=== PATIENT | female | born 1995 | race Caucasian/White ===

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

== ENCOUNTER 2017-01-09 09:06 | Outpatient (CLI) | payer OTHER ==
[~2017-01-09] VITALS: Ht 165.1 cm; Wt 81.0 kg
[2017-01-09] MEDS ORDERED: LEVO112T2 PO (09:26)
[2017-01-09 09:30] VITALS: BP 145/67
[2017-01-09 10:32] VITALS: BP 124/57
[2017-01-09 10:56] LABS: MEAN CORPUSCULAR HGB CONC 33.6 g/dl (32.0-36.5); MEAN CORPUSCULAR VOLUME 77.5 fl (80.0-96.0); RED CELL DISTRIBUTION WIDTH 13.7 % (11.5-14.5); WHITE BLOOD COUNT 13.9 K/mm3 (4.0-10.0)
[2017-01-09 11:44] LABS: ALBUMIN 2.5 GM/DL (3.2-5.2); ALBUMIN/GLOBULIN RATIO 0.64 (1.00-1.93); ALKALINE PHOSPHATASE 141 U/L (45-117); ALT/SGPT 9 U/L (12-78); AMYLASE 80 U/L (25-115); ANION GAP 11 MEQ/L (8-16); AST/SGOT 12 U/L (15-37); BILIRUBIN,TOTAL 0.8 MG/DL (0.2-1.0); BLOOD UREA NITROGEN 6 MG/DL (7-18); CALCIUM LEVEL 8.7 MG/DL (8.5-10.1); CARBON DIOXIDE LEVEL 24 MEQ/L (21-32); CHLORIDE LEVEL 105 MEQ/L (98-107); CREATININE FOR GFR 0.49 MG/DL (0.55-1.02); GLUCOSE, FASTING 95 MG/DL (70-105); POTASSIUM SERUM 4.4 MEQ/L (3.5-5.1); SODIUM LEVEL 140 MEQ/L (136-145); TOTAL PROTEIN 6.4 GM/DL (6.4-8.2)
[2017-01-09 12:03] VITALS: BP 120/71
== END 2017-01-09 12:50 | disposition home or self-care (01) ==
LOC: M LDO 09:06
PROVIDERS: ATTEND Obstetrics & Gynecology
DX: O26.893 Other specified pregnancy related conditions, third trimester (principal); R10.9 Unspecified abdominal pain; Z3A.35 35 weeks gestation of pregnancy

== ENCOUNTER → 2017-01-19 | Outpatient (CLI) | payer OTHER ==
[~2017-01-19] VITALS: Ht 165.1 cm; Wt 83.0 kg
[~2017-01-19] MED LIST changes: +FERR325T3 PO; +LEVO112T2 PO; +PRENTAB9 PO
[2017-01-19 17:47] VITALS: BP 138/75
--- NOTE | 2017-01-19 19:24 | IPNPDOC ---
Text Note Date of Service The patient was seen on 01/19/17. NOTE Subjective: Pt is a 21 year old with a cool IUP at approximately 37wk who presents to triage for ctxs. She states the ctx started this morning and over the course of the day have gotten stronger. She had one episode of emesis earlier. No diarrhea. ROS: Admits: Gross movement, adequate hydration Denies: Vaginal discharge/loss of fluid/bleeding, fever/chills Objective: Normotensive, tachycardia NST: FHT 140 with moderate variability, +accels, no decels. Reactive NST. Stovall: uterine irritability, irregular ctx Physical Exam: General: WDWN gravid female in NAD Mental : AAOx3 Abdominal: Gravid abdomen without guarding or rebound tenderness. Extremity: no edema in LE bilaterally (SCE chaperoned by RN): / Assessment: Pt is a 21 year old with a cool IUP at approximately 37wk in latent labor with no evidence of active labor. Normotensive, but slightly tachycardic- in conjunction with uterine irritability, likely related to slight dehydration. SCE /-. Reactive NST. Plan: -pt given pitcher of water to drink prior to discharge home -Labor precautions discussed with patient -keep scheduled office appointment - kick counts daily -encouraged continued hydration at home -return to triage if vaginal bleeding/lof, increasing frequency and pain of CTXs , fever, reduced movement, or other problems -medrec reviewed Dr. Marcus Newton MD [place] Srinath FERREIRA, I+O VSSrinath, I+O Vital Signs Date Time Temp Pulse Resp B/P Pulse Ox O2 Delivery O2 Flow Rate FiO2 01/19/17 17:47 98.5 133 138/75 MARCUS NEWTON MD Jan 19, 2017 19:24
== END ==
LOC: M LDO 17:34
PROVIDERS: ATTEND Obstetrics & Gynecology
DX: O62.0 Primary inadequate contractions (principal); Z3A.37 37 weeks gestation of pregnancy; O26.893 Other specified pregnancy related conditions, third trimester; R00.0 Tachycardia, unspecified

== ENCOUNTER 2017-01-25 20:36 | Outpatient (CLI) | payer OTHER ==
[~2017-01-25] VITALS: Ht 165.1 cm; Wt 80.0 kg
[2017-01-25 20:47] VITALS: BP 131/81
--- NOTE | 2017-01-26 00:23 | HPE ---
DATE OF ADMISSION: 01/25/2017 21-year-old, 2, para 1, LMP 04/20/2016, EDC 02/04/2017, at 38 weeks of gestation, history of clear spontaneous rupture of membranes for 24 hours. Risk factor is that she is hypothyroid. She had a past history of gestational hypertension. She has asthma and restless leg syndrome. LABS: O positive, HIV negative, hepatitis negative, RPR negative, rubella immune. Varicella immune. Urine negative. Gonorrhea and chlamydia negative. GBS is negative. PAST HISTORY: In 2014 at 38 weeks spontaneous vaginal delivery male 6 pounds 15 ounces because of gestational hypertension. PHYSICAL EXAMINATION: She is in no acute distress. She came in not wearing a pad. Symphysis fundus height is 38, vertex category one strip. No contractions. Sterile examination: Nitrazine negative, Fern negative. Cervix 70% effaced, posterior, 2-3 cm, -2 station. No vaginal bleeding or discharge noted. Urine is 1005, pH 7, negative. Blood pressure is 131/81, respirations are 18, pulse 115, temperature 97.1. Other blood pressures 135/82, 131/81, 140/78, 142/83. The rest examination is unremarkable. She is normocephalic, atraumatic. Neck: Full range of motion. Pupils equal and reactive to light. Distal pulses are symmetric. No evidence of DVT, PE or superficial phlebitis. No right upper quadrant pain. No visual disturbances. Has no reflex abnormality. No pedal edema. Chest is clear bilaterally to bases. No wheezes or rhonchi. No CVA tenderness. Four quadrant bowel sounds. 38 Symphysis fundus height. Uterus is non-irritable. Category one strip. She has no rashes, lesions or pruritus. No arthralgia, myalgia. No complaints of cough, wheeze, shortness breath or dyspnea on exertion. No chest pain, not bleeding. Neuro complete. No incontinency, urgency or frequency. No nausea, vomiting, diarrhea, or constipation. No diabetic issues. Does not smoke, drink or abuse alcohol. . There is no domestic violence. Past rest of the history is unremarkable. In summary, we have a 38 plus week of gestation with probably gestational hypertension. Good candidate for induction of labor. Very favorable cervix. An appointment on Friday to discuss induction of labor.
== END 2017-01-25 22:15 | disposition home or self-care (01) ==
LOC: M LDO 20:36
PROVIDERS: ATTEND Obstetrics & Gynecology
DX: O26.893 Other specified pregnancy related conditions, third trimester (principal); O99.283 Endocrine, nutritional and metabolic diseases complicating pregnancy, third trimester; E03.9 Hypothyroidism, unspecified; O99.513 Diseases of the respiratory system complicating pregnancy, third trimester; J45.909 Unspecified asthma, uncomplicated; O99.353 Diseases of the nervous system complicating pregnancy, third trimester; G25.81 Restless legs syndrome; Z3A.38 38 weeks gestation of pregnancy

== ENCOUNTER 2017-01-26 04:18 | Inpatient (IN) | payer OTHER ==
[2017-01-26] VITALS (12 sets, daily range): BP systolic 113–146; BP diastolic 59–81
[~2017-01-26] VITALS: Ht 165.1 cm; Wt 80.0 kg
[2017-01-26] MEDS ORDERED: LR 1,000 ML IV SCH (05:01)
[2017-01-26] MEDS ORDERED: LACTATED RINGER'S 1000 ML IV ONE (05:15)
[2017-01-26 05:23] LABS: MEAN CORPUSCULAR HEMOGLOBIN 25.1 pg (27.0-33.0); MEAN CORPUSCULAR HGB CONC 33.1 g/dl (32.0-36.5); MEAN CORPUSCULAR VOLUME 75.7 fl (80.0-96.0); RED CELL DISTRIBUTION WIDTH 14.4 % (11.5-14.5); WHITE BLOOD COUNT 13.7 K/mm3 (4.0-10.0)
[2017-01-26] MEDS ORDERED: FENTANYL 2MCG/ML ROPIVACAINE 0.2% NACL 250 ML CADD As Ordered ONE (05:36)
[2017-01-26] MEDS ORDERED: REFRIGERATOR IV KEYS XX PRN (05:55)
[2017-01-26] MEDS ORDERED: EPIDURAL/PCA KEYS XX PRN (05:55)
[2017-01-26] MEDS ORDERED: EPIDURAL COMMENT XX SCH (05:55)
[2017-01-26] MEDS ORDERED: LACTATED RINGER'S 1000 ML IV PRN (05:55)
[2017-01-26] MEDS ORDERED: ONDANSETRON 4MG/2ML VIAL (J2405) IV PRN (05:55)
[2017-01-26] MEDS ORDERED: FENTANYL/ROPIVACAINE/NACL CADD 250 ML EPIDURAL SCH (05:55)
[2017-01-26] MEDS ORDERED: NALOXONE INJ 0.4 MG/1 ML VIAL (J2310) IV PRN (05:55)
[2017-01-26] MEDS ORDERED: ePHEDrine SULFATE 25 MG/5 ML(5MG/ML) SYRINGE IV PRN (05:55)
[2017-01-26] MEDS ORDERED: diphenhydrAMINE INJ 50MG/ML VIAL (J1200) IV PRN (05:55)
--- NOTE | 2017-01-26 07:08 | HPE ---
DATE OF ADMISSION: 01/26/2017 21-year-old, 2, para 1, last menstrual period (LMP) 04/15/2016, expected date of confinement (EDC) 02/06/2017, at 38 and 1 weeks of gestation in active labor at 6 cm, 100% effaced with bulging membranes. The risk factors is she is hypothyroid, gestational hypertension, asthma and restless leg syndrome. LABORATORIES: O positive. HIV negative. Hepatitis negative. RPR negative. Rubella immune. Varicella immune. Urine negative. Gonorrhea and chlamydia negative. GBS negative. PAST HISTORY: In 2014, at 38 weeks, spontaneous vaginal delivery of a male, 6 pounds 15 ounces, gestational hypertension. On examination, she is distressed. Symphysis fundus height is 38 cm, vertex occiput anterior (OA), 100% effaced, -1 station, 6 cm with bulging membranes. No vaginal loss or bleeding. Urine is 1.005, pH 7, negative. Blood pressure 131/88, respirations 18, pulse 104 and temperature 97.6. Our plan of management is to hydrate the patient, activate an epidural, anticipate vaginal delivery. In summary, we have a term gestation at 38 and 1 weeks with gestational hypertension in active labor.
[2017-01-26] MEDS ORDERED: OXYTOCIN 30 UNITS IN 0.9% NaCl 500ML IV BAG (J2590) As Ordered ONE (07:26)
[2017-01-26] MEDS ORDERED: OXYTOCIN DRIP 30 UNITS in APPROPRIATE DILUENT 1 EA IV SCH (07:30)
[2017-01-26 08:34] LABS: CORD GAS HCO3 V 22.6 MEQ/L; CORD GAS O2 SAT V 85.3 %; CORD GAS PH V 7.427 UNITS; CORD GAS PO2 V 36.2 mmHg; CORD GAS SBC V 23.3 MEQ/L; CORD GAS TCO2 V 23.6 MEQ/L
[2017-01-26 08:43] LABS: CORD GAS ABE A -2.5; CORD GAS HCO3 A 23.5 MEQ/L; CORD GAS O2 SAT A 53.7 %; CORD GAS PCO2 A 44.6 mmHg; CORD GAS PH A 7.339 UNITS; CORD GAS PO2 A 20.3 mmHg; CORD GAS SBC A 21.3 MEQ/L; CORD GAS TCO2 A 24.8 MEQ/L
[2017-01-26] MEDS ORDERED: DOCUSATE SODIUM 100 MG CAP PO PRN (08:45)
[2017-01-26] MEDS ORDERED: ANUSOL HC CREAM 30GM TOP PRN (08:45)
[2017-01-26] MEDS ORDERED: MEASLES,MUMPS,RUBELLA VACCINE INJ (MMR-II) (90707) SC SCH (08:45)
[2017-01-26] MEDS ORDERED: MOM 30ML SUSPENSION UDC PO PRN (08:45)
[2017-01-26] MEDS ORDERED: RHOGAM 300 MCG (1500 IU) INJ (J2790) IM SCH (08:45)
[2017-01-26] MEDS ORDERED: ACETAMINOPHEN 500 MG TAB PO PRN (08:45)
[2017-01-26] MEDS ORDERED: DIBUCAINE 1% OINTMENT 30GM TOP PRN (08:45)
[2017-01-26] MEDS ORDERED: METHYLERGONOVINE MALEATE 0.2 MG TAB PO PRN (08:45)
--- NOTE | 2017-01-26 08:51 | DN ---
DATE: 01/26/2017 This lady is a 2, para 1 with gestational hypertension, admitted at 38 and 2 in active labor, epidural in place. Artificial rupture of membranes, clear liquor, augmentation with two milliunits of Pitocin, delivered a live female infant weighing 8 pounds 10 ounces, 3918 grams, scores of 9 and 9 at one and five minutes respectively. Placenta delivered spontaneously thereafter. Three-vessel cord, membranes and tissues intact. Arterial and venous pH was performed. Evaluation of the cervix was normal. The lateral johnson, anterior and posterior were normal. She had a small abrasion at the perineum, which was bleeding because of the varicosity, oversewn with a [id number] #2-0 Vicryl on a [id number]. The uterus contracted well down on Pitocin. Patient and baby tolerating procedure well.
[2017-01-26] MEDS: IBUPROFEN 800 MG TAB PO PRN ×2 (14:45→20:34)
[2017-01-26] MEDS: PRENATAL VITAMIN TAB PO SCH (14:51)
[2017-01-27 05:34] VITALS: BP 132/64
[2017-01-27] MEDS ORDERED: LEVOTHYROXINE 0.125 MG TAB (125 MCG) PO SCH (06:00)
[2017-01-27 06:42] LABS: MEAN CORPUSCULAR HEMOGLOBIN 24.6 pg (27.0-33.0); MEAN CORPUSCULAR HGB CONC 32.5 g/dl (32.0-36.5); MEAN CORPUSCULAR VOLUME 75.7 fl (80.0-96.0); RED CELL DISTRIBUTION WIDTH 14.5 % (11.5-14.5); WHITE BLOOD COUNT 13.7 K/mm3 (4.0-10.0)
[2017-01-27] MEDS: PRENATAL VITAMIN TAB PO SCH (07:58)
[2017-01-27] MEDS: IBUPROFEN 800 MG TAB PO PRN (07:59)
--- NOTE | 2017-01-27 08:56 | IPNPDOC ---
Text Note Date of Service The patient was seen on 01/27/17. NOTE PPD 1 Catshakira is a 21yo doing well on PPD 1 s/p uncomplicated . She is . Lochia normal, spontaneously voiding and ambulating without difficulty. Tolerating regular diet. Denies f/c/n/v/SOB/CP/ROME/abdominal pain. Vitals wnl, afebrile Exam: General: WDWN, NAD, resting comfortably Cardiac: S1S2 present, no murmur Lungs: CTAB without wheeze/crackles Abdomen: soft, NTTP, fundus firm u-2cm Extremities: no tenderness of calves bilaterally Assessment: Marily is a 21yo doing well on PPD 1 s/p uncomplicated . Meeting all milestones. No e/o infection, hemodynamically stable. Plan: -discharge to home with routine follow-up for 6wk PP visit -home meds already given from clinic stock -undecided on contraception Dr. Marcus Valle MD [facility] [place] VS,Srinath, I+O VS, Srinath, I+O Laboratory Tests 01/27/17 06:24 Red Blood Count 3.55 L, Mean Corpuscular Volume 75.7 L, Mean Corpuscular Hemoglobin 24.6 L, Mean Corpuscular Hemoglobin Concent 32.5, Red Cell Distribution Width 14.5 Vital Signs Date Time Temp Pulse Resp B/P Pulse Ox O2 Delivery O2 Flow Rate FiO2 01/27/17 05:34 98.2 91 18 132/64 01/26/17 17:50 96 Room Air I&O- Last 24 Hours up to 6 AM 01/27/17 05:59 Output Total 975 ml Balance -975 ml MARCUS VALLE MD Jan 27, 2017 08:56
[2017-01-27] MEDS ORDERED: TYLE500T78 PO (09:50)
[2017-01-27] MEDS ORDERED: IBUP-1114 PO (09:54)
[2017-01-27] MEDS ORDERED: NUPE10OI TOP (09:54)
[2017-01-27] MEDS ORDERED: COLA100C PO (09:54)
== END 2017-01-27 15:10 | disposition home or self-care (01) | DRG 775 ==
LOC: M LDO 04:18 → M LDI 05:02 → M OBS 10:38
PROVIDERS: ADMIT Obstetrics & Gynecology; ATTEND Obstetrics & Gynecology
PROC: 10E0XZZ Delivery of Products of Conception, External Approach (ICD-10-PCS; principal; 2017-01-26)
PROC: 10907ZC Drainage of Amniotic Fluid, Therapeutic from Products of Conception, Via Natural or Artificial Opening (ICD-10-PCS; 2017-01-26)
DX: O13.4 Gestational [pregnancy-induced] hypertension without significant proteinuria, complicating childbirth (principal); O99.354 Diseases of the nervous system complicating childbirth; O99.284 Endocrine, nutritional and metabolic diseases complicating childbirth; E03.9 Hypothyroidism, unspecified; Z3A.38 38 weeks gestation of pregnancy; J45.909 Unspecified asthma, uncomplicated; G25.81 Restless legs syndrome; O87.8 Other venous complications in the puerperium; O99.52 Diseases of the respiratory system complicating childbirth; Z37.0 Single live birth

== ENCOUNTER → 2019-06-21 | Outpatient (REF) | payer MEDICAID ==
[~2019-06-21] MED LIST changes: -ACET50TA PO; +COLA100C5 PO; +IBUP-1114 PO; +MAPA500T2 PO; +NUPE10OI TOP; +TYLE500T78 PO
== END ==
LOC: M SFHCLERA 16:52
PROVIDERS: ATTEND Nurse Practitioner Family
DX: J02.9 Acute pharyngitis, unspecified (principal)

== ENCOUNTER → 2019-09-06 | Outpatient (CLI) | payer OTHER ==
[2019-09-06 15:31] LABS: BASO # 0.1 10^3/uL (0.0-0.2); BASO % 0.4 % (0.0-1.0); EOS # 0.4 10^3/uL (0.0-0.5); EOS % 3.6 % (0.0-3.0); HEMATOCRIT 40.2 % (36.0-47.0); HEMOGLOBIN 13.4 g/dl (12.0-15.5); LYMPH # 2.6 10^3/uL (1.5-5.0); MEAN CORPUSCULAR HEMOGLOBIN 29.1 pg (27.0-33.0); MEAN CORPUSCULAR HGB CONC 33.3 g/dl (32.0-36.5); MEAN CORPUSCULAR VOLUME 87.4 fl (80.0-96.0); MONO # 0.8 10^3/uL (0.0-0.8); MONO % 6.4 % (0.0-5.0); NEUTROPHILS % 66.8 % (36.0-66.0); PLATELET COUNT, AUTOMATED 216 10^3/uL (150-450)
[2019-09-06 16:02] LABS: FREE T4 0.83 NG/DL (0.76-1.46); GLUCOSE CHALLENGE TEST 1 HOUR 102 MG/DL (LESS THAN 140)
[2019-09-06 16:14] LABS: RUBELLA IgG QUALITATIVE IMMUNE (IMMUNE)
[2019-09-06 16:43] LABS: HIV 1&2 SCREEN CENTAUR NEGATIVE (NEGATIVE)
[2019-09-06 17:04] LABS: CHLAMYDIA DNA AMPLIFICATION NEGATIVE (NEGATIVE); GC DNA AMPLIFICATION NEGATIVE (NEGATIVE)
== END ==
LOC: M LAB 13:36
PROVIDERS: ATTEND Advanced Practice Midwife
DX: O99.211 Obesity complicating pregnancy, first trimester (principal)

== ENCOUNTER → 2019-10-18 | Outpatient (CLI) | payer OTHER ==
--- NOTE | 2019-10-19 07:20 | REP ---
REASON FOR EXAM: anatomy. Multiple ultrasonographic image of the gravid uterus show a single living intrauterine gestation in the breech presentation. Doppler interrogation of the heart shows a heart rate of 146 beats per minute. The placenta is posterior left lateral and not low lying. The cervix measures 4.2 cm in length and is closed. The subjective amniotic fluid volume is within normal limits. Evaluation of the maternal adnexal spaces showed no abnormalities. The structures seen as unremarkable are as follows: Thalami, cavum septum pellucidum, cerebellum, cisterna magna, cerebral ventricles, spine, urinary bladder, stomach, three-vessel umbilical cord, cord insertion, four-chamber heart, left ventricular outflow tract, upper and lower extremities. The upper lip, kidneys, and right ventricular outflow tract were not well visualized. BPD 4.6 cm = 19 weeks 5 days HC 17.4 cm = 19 weeks 6 days AC 14.6 cm = 19 weeks 6 days FL 3.2 cm = 20 weeks 0 days The estimated weight is 322 grams, which is at the 48th percentile for a 92-tpoi-9-day gestational age. IMPRESSION: Single living intrauterine gestation as described above with an estimated date of delivery of 19 weeks 6 days via composite criteria and an estimated date of delivery of 03/07/2020 by today's exam. No anomalies were detected, however, I recommend a followup examination to better visualize those anatomical structures not well seen today as described above. Electronically Signed by Donal Martinez DO 10/19/2019 11:15 A
== END ==
LOC: M RAD 15:48
PROVIDERS: ATTEND Advanced Practice Midwife
DX: O99.282 Endocrine, nutritional and metabolic diseases complicating pregnancy, second trimester (principal); Z3A.19 19 weeks gestation of pregnancy

== ENCOUNTER → 2019-12-08 | Outpatient (CLI) | payer OTHER ==
[2019-12-08 14:05] LABS: HEMATOCRIT 35.5 % (36.0-47.0); HEMOGLOBIN 11.7 g/dl (12.0-15.5); MEAN CORPUSCULAR HEMOGLOBIN 28.6 pg (27.0-33.0); MEAN CORPUSCULAR VOLUME 86.8 fl (80.0-96.0); PLATELET COUNT, AUTOMATED 227 10^3/uL (150-450); RED BLOOD COUNT 4.09 10^6/uL (4.00-5.40); WHITE BLOOD COUNT 12.4 10^3/uL (4.0-10.0)
[2019-12-08 14:29] LABS: FREE T4 0.87 NG/DL (0.76-1.46); THYROID STIMULATING HORMONE 4.25 uIU/ML (0.358-3.740)
--- NOTE | 2019-12-09 15:17 | REP ---
Clinical: Anatomical evaluation. Comparison: 10/18/2019 . Findings: Examination demonstrates a single live intrauterine in cephalic presentation. motion is identified by technologist. Placenta is noted posterior/left lateral and grade I without evidence for placenta previa or abruption. Amniotic fluid volume is normal. Cervix measures 4.7 cm in length and appears closed. No evidence for nuchal cord. Gestational age by LMP 27 weeks 1 day with JONNY 03/07/2020 . Gestational age by current measurements 28 weeks 1 day with JONNY 02/29/2020 . FHR equals 147 beats per minute. Estimated weight 1191 grams ( 69th percentile). Amniotic fluid index: 14.2 cm Umbilical cord SD ratio: 3.12 Anatomical assessment demonstrates normal structures including cranium, choroid plexus, facial features, lungs, four-chamber heart/ventricular outflow tracts, diaphragm, stomach, cord insertion/three-vessel cord, kidneys/bladder, and extremities. Impression: Single live intrauterine in cephalic presentation demonstrating appropriate interval growth. In conjunction with prior examination anatomical assessment is complete and normal. No gross abnormalities are identified. Electronically Signed by Manuel Zhou MD 12/09/2019 03:09 P
== END ==
LOC: M RAD 10:10
PROVIDERS: ATTEND Advanced Practice Midwife
DX: O99.282 Endocrine, nutritional and metabolic diseases complicating pregnancy, second trimester (principal); Z3A.28 28 weeks gestation of pregnancy

== ENCOUNTER → 2020-01-19 | Outpatient (CLI) | payer OTHER ==
[2020-01-19 16:33] LABS: FREE T4 0.89 NG/DL (0.76-1.46); THYROID STIMULATING HORMONE 3.05 uIU/ML (0.358-3.740)
--- NOTE | 2020-01-19 18:08 | REP ---
Clinical: Growth evaluation. Comparison: 12/08/2019 . Findings: Examination demonstrates a single live intrauterine in cephalic presentation. motion is identified by technologist. Placenta is noted anterior/left lateral and grade I I without evidence for placenta previa or abruption. Amniotic fluid volume is normal. Cervix measures 3.8 cm in length and appears closed. No evidence for nuchal cord. Gestational age by LMP 33 weeks 1 day with JONNY 03/07/2020 . Gestational age by current measurements 33 weeks 5 days with JONNY 03/03/2020 . FHR equals 144 beats per minute. Estimated weight 2225 grams ( 54th percentile). Amniotic fluid index: 13.6 cm (8.3 - 24.5) Umbilical cord SD ratio: 2.72 (2.00 - 3.00) Impression: Single live intrauterine in cephalic presentation demonstrating appropriate interval growth. No gross abnormalities are identified. Electronically Signed by Manuel Zhou MD 01/19/2020 05:59 P
== END ==
LOC: M RAD 14:29
PROVIDERS: ATTEND Advanced Practice Midwife
DX: O99.283 Endocrine, nutritional and metabolic diseases complicating pregnancy, third trimester (principal); O26.843 Uterine size-date discrepancy, third trimester; Z3A.33 33 weeks gestation of pregnancy

== ENCOUNTER → 2020-02-10 | Outpatient (REF) | payer OTHER, MEDICAID | LOC: M SFHCWAGY 13:04 | PROVIDERS: ATTEND Advanced Practice Midwife | DX: O99.283 Endocrine, nutritional and metabolic diseases complicating pregnancy, third trimester (principal) ==

== ENCOUNTER 2020-02-23 09:43 | Inpatient (IN) | payer MEDICAID, OTHER ==
[2020-02-23] VITALS (7 sets, daily range): BP systolic 132–158; BP diastolic 67–105
[~2020-02-23] VITALS: Ht 165.1 cm; Wt 102.7 kg
[2020-02-23] MEDS ORDERED: LACTATED RINGER'S 1000 ML IV STA (09:55)
[2020-02-23] MEDS ORDERED: LR 1,000 ML IV SCH ×2 (09:55→10:46)
[2020-02-23] MEDS ORDERED: OXYTOCIN 30 UNITS IN 0.9% NaCl 500ML IV BAG (J2590) As Ordered ONE (10:23)
--- NOTE | 2020-02-23 10:34 | HPE ---
DATE OF ADMISSION: 02/23/2020 24-year-old, (G) 3, para (P) 2 female at 38 and 1/7 weeks gestation by 8 week ultrasound with expected date of confinement (EDC) of 03/07/2020 for regular contractions every 7-10 minutes since 5:00 a.m. on the day of admission. She denies vaginal bleeding. There is good movement. The contractions are increasing in intensity. COURSE: The patient's care [facility] through [facility]. She had no complications. OBSTETRICAL HISTORY: 1. May 2015 - vaginal delivery 6 pound 15 ounce male . 2. January 2017 - vaginal delivery 8 pound 10 ounce female . MEDICAL HISTORY: 1. Hypothyroidism. 2. Asthma. SURGERIES: 1. Ganglion cyst. ALLERGIES: - None. SOCIAL HISTORY: Father of the baby is involved. The patient lives in [place]. She denies cigarettes, alcohol or drug use. FAMILY HISTORY: Noncontributory. PHYSICAL EXAMINATION: Blood pressure 162/100. Afebrile. Pulse 84. She appears uncomfortable. Head and Neck Exam: Normal. Lungs: Clear. Heart: Regular rate and rhythm. Abdomen: Nontender. Gravid. heart tones Category 1. Sterile Vaginal Exam: 5-6 cm, 100%, bulging membranes, vertex. Extremities: Nontender. LABS: GBS negative. Blood type O positive. ASSESSMENT: 24-year-old, G3, P2, female at 38 and 1/7 weeks gestation who presents in active labor. PLAN: The patient is admitted on 02/23/2020.
[2020-02-23] MEDS ORDERED: OXYTOCIN DRIP 30 UNITS in IV 1 EA IV SCH (10:46)
[2020-02-23] MEDS ORDERED: LIDOCAINE 1% MDV 20ML VIAL INFIL ONE (11:00)
[2020-02-23] MEDS ORDERED: IBUPROFEN 600 MG TAB PO PRN (11:00)
[2020-02-23] MEDS ORDERED: ACETAMINOPHEN TAB 650MG DOSE (2X325MG) PO PRN (11:00)
[2020-02-23] MEDS ORDERED: DIBUCAINE 1% OINTMENT 30GM TOP PRN (11:00)
[2020-02-23] MEDS ORDERED: ACETAMINOPHEN 500 MG TAB PO PRN (11:00)
[2020-02-23] MEDS ORDERED: MEASLES,MUMPS,RUBELLA VACCINE INJ (MMR-II) (90707) SC SCH (11:00)
[2020-02-23] MEDS ORDERED: PROMETHAZINE 25 MG TAB PO PRN (11:00)
[2020-02-23] MEDS ORDERED: DOCUSATE SODIUM 100 MG CAP PO PRN (11:00)
[2020-02-23] MEDS ORDERED: RHOGAM 300 MCG (1500 IU) INJ (J2790) IM SCH (11:00)
[2020-02-23] MEDS ORDERED: ONDANSETRON 4MG/2ML VIAL IV PRN (11:00)
[2020-02-23] MEDS ORDERED: SLF 3 ML SYR IV PRN (12:00)
[2020-02-23 12:38] LABS: HEMATOCRIT 36.3 % (36.0-47.0); HEMOGLOBIN 11.5 g/dl (12.0-15.5); MEAN CORPUSCULAR HEMOGLOBIN 25.3 pg (27.0-33.0); MEAN CORPUSCULAR HGB CONC 31.7 g/dl (32.0-36.5); MEAN CORPUSCULAR VOLUME 79.8 fl (80.0-96.0); PLATELET COUNT, AUTOMATED 186 10^3/uL (150-450); RED BLOOD COUNT 4.55 10^6/uL (4.00-5.40); WHITE BLOOD COUNT 14.1 10^3/uL (4.0-10.0)
[2020-02-23] MEDS ORDERED: LEVO50TA5 PO (13:40)
[2020-02-23] MEDS: SLF 3 ML SYR IV SCH ×2 (20:01→22:00)
[2020-02-23] MEDS: IBUPROFEN 800 MG TAB PO PRN (20:01)
[2020-02-24] MEDS ORDERED: LEVOTHYROXINE 50MCG TABLET (0.05MG) PO SCH (06:00)
[2020-02-24] MEDS: IBUPROFEN 800 MG TAB PO PRN (06:13)
[2020-02-24 06:24] VITALS: BP 143/82
[2020-02-24] MEDS ORDERED: PRENATAL VITAMINS CHEWABLE TABLET PO SCH (09:00)
[2020-02-24] MEDS ORDERED: INFLUENZA QUADRIVALENT PF VACCINE 0.5ML SYRINGE (90686) IM ONE (09:00)
[2020-02-24] MEDS ORDERED: ACET-683 PO (12:10)
[2020-02-24] MEDS ORDERED: IBUP80TA PO (12:10)
== END 2020-02-24 12:30 | disposition home or self-care (01) | DRG 560 ==
LOC: M LDI 09:43 → M OBS 13:49
PROVIDERS: ADMIT Advanced Practice Midwife; ATTEND Obstetrics & Gynecology
PROC: 10E0XZZ Delivery of Products of Conception, External Approach (ICD-10-PCS; principal; 2020-02-23)
PROC: 0HQ9XZZ Repair Perineum Skin, External Approach (ICD-10-PCS; 2020-02-23)
DX: O99.52 Diseases of the respiratory system complicating childbirth (principal); J45.909 Unspecified asthma, uncomplicated; O99.284 Endocrine, nutritional and metabolic diseases complicating childbirth; E03.9 Hypothyroidism, unspecified; Z3A.38 38 weeks gestation of pregnancy; O70.0 First degree perineal laceration during delivery; Z37.0 Single live birth

== ENCOUNTER 2020-04-24 17:04 | Emergency (ER) | payer MEDICAID, OTHER ==
[~2020-04-24] VITALS: Ht 165.1 cm; Wt 94.8 kg
[~2020-04-24 17:04] MED LIST changes: +ACET-683 PO; +LEVO50TA5 PO
[2020-04-24 17:05] VITALS: BP 137/85
[2020-04-24] MEDS ORDERED: BUSP5TA (17:16)
[2020-04-24] MEDS ORDERED: KEFL500C17 PO (17:41)
[2020-04-24] MEDS ORDERED: CEPHALEXIN 500 MG CAP PO ONE (17:45)
[2020-04-25] MEDS ORDERED: CEPH500C (17:27)
== END 2020-04-24 17:56 | disposition home or self-care (01) ==
LOC: M ED 17:04
DX: L03.115 Cellulitis of right lower limb (principal); Z79.899 Other long term (current) drug therapy

== ENCOUNTER 2020-04-25 17:21 | Emergency (ER) | payer OTHER ==
[~2020-04-25] VITALS: Ht 165.1 cm; Wt 94.6 kg
[2020-04-25 17:21] VITALS: BP 132/79
[~2020-04-25 17:21] MED LIST changes: +BUSP5TA; +KEFL500C17 PO
[2020-04-25] MEDS ORDERED: CEPH500C (17:27)
== END 2020-04-25 18:24 | disposition home or self-care (01) ==
LOC: M ED 17:21
DX: L02.411 Cutaneous abscess of right axilla (principal); L03.115 Cellulitis of right lower limb; E03.9 Hypothyroidism, unspecified; F41.9 Anxiety disorder, unspecified; Z79.899 Other long term (current) drug therapy

== ENCOUNTER → 2021-01-10 | Outpatient (REF) | payer OTHER ==
[~2021-01-10] MED LIST changes: +CEPH500C
[2021-01-10 19:00] LABS: ALBUMIN 4.2 GM/DL (3.2-5.2); ALT/SGPT 43 U/L (12-78); BILIRUBIN,TOTAL 0.6 MG/DL (0.2-1.0); BLOOD UREA NITROGEN 11 MG/DL (7-18); CALCIUM LEVEL 8.6 MG/DL (8.5-10.1); CARBON DIOXIDE LEVEL 29 MEQ/L (21-32); CHLORIDE LEVEL 104 MEQ/L (98-107); CHOLESTEROL LEVEL 200 MG/DL (<200); CREATININE FOR GFR 0.84 MG/DL (0.55-1.30); FREE T4 0.47 NG/DL (0.76-1.46); GLOMERULAR FILTRATION RATE > 60.0 (>60); GLUCOSE, FASTING 83 MG/DL (70-100); HDL CHOLESTEROL 32 MG/DL (>40); LDL CHOLESTEROL 114 MG/DL (<100); NON-HDL-C 168 MG/DL; POTASSIUM SERUM 4.1 MEQ/L (3.5-5.1); SODIUM LEVEL 137 MEQ/L (136-145); TRIGLYCERIDES LEVEL 269 MG/DL (<150)
[2021-01-10 19:52] LABS: HEMOGLOBIN A1c 5.6 %
== END ==
LOC: M SFHCLERA 14:52
PROVIDERS: ATTEND Student in an Organized Health Care Education/Training Program
DX: E66.9 Obesity, unspecified (principal); E03.9 Hypothyroidism, unspecified

== ENCOUNTER → 2021-01-10 | Outpatient (REF) | payer OTHER | LOC: M SFHCWAGY 18:34 | PROVIDERS: ATTEND Advanced Practice Midwife | DX: Z12.4 Encounter for screening for malignant neoplasm of cervix (principal) ==

== ENCOUNTER 2021-04-20 17:42 | Inpatient (IN) | payer MEDICAID, OTHER ==
[~2021-04-20] VITALS: Ht 165.1 cm; Wt 103.4 kg
[2021-04-20 18:48] LABS: HEMATOCRIT 43.2 % (36.0-47.0); HEMOGLOBIN 14.3 g/dl (12.0-15.5); MEAN CORPUSCULAR HEMOGLOBIN 27.4 pg (27.0-33.0); MEAN CORPUSCULAR HGB CONC 33.1 g/dl (32.0-36.5); MEAN CORPUSCULAR VOLUME 82.9 fl (80.0-96.0); PLATELET COUNT, AUTOMATED 235 10^3/uL (150-450); RED BLOOD COUNT 5.21 10^6/uL (4.00-5.40); WHITE BLOOD COUNT 14.5 10^3/uL (4.0-10.0)
[2021-04-20 19:20] LABS: ACETAMINOPHEN LEVEL < 2.0 UG/ML (10.0-30.0); ALBUMIN 4.4 GM/DL (3.2-5.2); ALT/SGPT 69 U/L (12-78); BILIRUBIN,DIRECT 0.1 MG/DL (0.0-0.2); BILIRUBIN,TOTAL 0.7 MG/DL (0.2-1.0); BLOOD UREA NITROGEN 8 MG/DL (7-18); CALCIUM LEVEL 8.7 MG/DL (8.5-10.1); CARBON DIOXIDE LEVEL 24 MEQ/L (21-32); CHLORIDE LEVEL 110 MEQ/L (98-107); ETHYL ALCOHOL (ETHANOL) < 0.003 % (0.000-0.010); GLOMERULAR FILTRATION RATE > 60.0 (>60); GLUCOSE, FASTING 89 MG/DL (70-100); SALICYLATE LEVEL 2.2 MG/DL (5.0-30.0); SODIUM LEVEL 140 MEQ/L (136-145); TOTAL PROTEIN 8.3 GM/DL (6.4-8.2)
[2021-04-20 19:23] LABS: HCG, SERUM QUALITATIVE NEGATIVE (NEGATIVE)
[2021-04-20 20:18] LABS: AMPHETAMINES LEVEL URINE NEGATIVE (NEGATIVE); BARBITURATES URINE NEGATIVE (NEGATIVE); BENZODIAZEPINES URINE NEGATIVE (NEGATIVE); CANNABINOIDS URINE NEGATIVE (NEGATIVE); COCAINE METABOLITE URINE NEGATIVE (NEGATIVE); METHADONE URINE NEGATIVE (NEGATIVE); OPIATES URINE NEGATIVE (NEGATIVE); PHENCYCLIDINE URINE NEGATIVE (NEGATIVE)
[2021-04-20 21:18] LABS: RSV AMPLIFICATION NEGATIVE (NEGATIVE)
[2021-04-20] MEDS ORDERED: ACETAMINOPHEN TAB 650MG DOSE (2X325MG) PO PRN (21:40)
[2021-04-20] MEDS ORDERED: MOM 30ML SUSPENSION UDC PO PRN (21:40)
[2021-04-20] MEDS ORDERED: MAALOX 30 ML SUSP *UDC PO PRN (21:40)
[2021-04-20] MEDS: NICOTINE 21MG/24HR 1 EA TRANSDERMAL TD SCH (22:30)
[2021-04-20 23:31] VITALS: BP 133/94
[2021-04-21] MEDS: traZODone 50 MG TAB PO PRN ×2 (00:44→21:32)
[2021-04-21 06:00] VITALS: BP 158/97
--- NOTE | 2021-04-21 09:21 | MHHPEPDOC ---
General Date Of Admission: Apr 20, 2021 Legal Status: 9.39 Chief Complaint I'm feeling more depressed, can't sleep, can't eat feeling anxiousall the time and I think it would be better if I ". History of Present Illness HISTORY OF THE PRESENT ILLNESS: Patient is a 25 -year-old , female, who [has no prior psychiatric history but has been suffering from anxiety and depression for the past several years. She has not been in any treatment, but was brought to emergency room by her ex-boyfriend yesterday due to increasing depression and suicidal thoughts. The patient reports that her boyfriend of 7 years with whom she has 3 children, was found to have ongoing affairs and left 2 weeks ago after trying joint therapy for a week. She stated that her depression is much worse with feeling shaky and anxious all the time, crying frequently, not able to sleep or eat, feeling hopeless, helpless and worthless and was thinking about suicide in many different ways because she feels everybody would be better off without her. She appears extremely blunted, preoccupied, and tearful. 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 She is willing to accept help, but is extremely anxious, depressed and feeling hopeless. She denies any drug or alcohol abuse. Denies any legal history and has no history of any formal psychiatric treatment]. Psychiatric Review of Systems Depression (2 or more weeks): depressed mood, insomnia/hypersomnia, feelings of worthlesness, decreased energy, difficulty concentrating, appetite changes, suicidal thoughts Medina (4 or more days of): denies Psychosis: denies PTSD: denies Anxiety: situational anxiety, stressor related anxiety, panic attacks Past Psychiatric History Previous Psychiatric Diagnosis: . Was in counseling briefly at age 18. No formal diagnosis Previous Psychiatric Admissions: . Never been hospitalized Suicide Attempts: . No history of suicide attempt Psychiatric Follow-up: ., Not in any active treatment Psychiatric medications: ., Never took any psychotropic medicine Past Medical History Medical Problems Hypothyroidism has been on Synthroid Head Injury: No Seizures: No Hospitalizations: No Surgeries: No Family Medical/Psychiatric HX Medical Problems Noncontributory Psychiatric Disorders: Yes (patient's mother and the maternal grandmother has severe depression and hospitalization in the past. She also has 1 brother with severe depression. No history of suicide in the family) Addiction: No Suicide Attemps/Completions: No Addiction History nicotine Social History Childhood: [Was born in [place], raised by her mother. She does not know her father]. Abuse/Trauma:[Denies any history of trauma or abuse]. Current Living Situation: [Was living with a boyfriend of 7 years and 3 children, age 5 4 and 1 boyfriend moved out recently.Right now Her boyfriend is caring for the children]. Education: [High school]. 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 Social Support: [Mother lived in [place]]. Legal: [No legal history]. Marital: [, Never , but was in relationship for 7 years]. Mental Status Examination General Appearance: appears stated age Build: average Demeanor: average, withdrawn, preoccupied Eye Contact: average Activity: average, anxious Behavior: cooperative, withdrawn Speech: clear, slow, low in volume, non-spontaneous Mood: depressed, anxious Affect: constricted, appropriate, congruent, anxious Thought Process: logical/linear, depressed, slow Thought Content (Delusions): none reported Thought Content (Other): none reported, obsessional, appropriate, coherent Thought Content (Aggressive): none reported Perception (Hallucinations): none reported Perception (Other): none reported Cognition (Impairment of): none reported Cognition(Intelligence Est.): average Oriented: Awake, Alert, Oriented times three Insight: fair Judgment: Fair Psychosis: Denies Diagnoses Major depression, recurrent, severe with no psychotic symptoms A-FIB/CHADSVASC A-FIB History Current/History of A-Fib/PAF?: No Current PO Anticoag Therapy: No Age/Risk Factor Scoring CHADSVASC: CHADSVASC Response (Comments) Value Gender Risk Factor Female 1 Hx of CHF No 0 Hx of HTN No 0 Hx of Stroke/TIA/or VTE No 0 Hx of Diabetes No 0 Hx of Vascular Disease No 0 Total 1 Treatment Treatment ordered: NONE Assessment Markedly depressed with the very blunted affect, psychomotor retardation and passive suicidal thoughts, and long history of a anxiety and ruminations. She is not showing any psychotic symptoms and suicidal thoughts are more of a passive nature and has no clear plan or intent. She is also under severe stress due to recent breakup and have 3 young children and is going to need a lot of support system. Needs stabilization with the antidepressant therapy and safe discharge plan with the support systems. Initial Treatment Plan 1. Patient was admitted on a 9.39 status. 2. Complete history was obtained. 3. With patients permission, family will be contacted and database will be expanded. 4. Patients medication regimen will be reviewed and changed accordingly. 5. Patient will be provided with protected environment. 6. Patient will be treated with individual, group, and milieu therapies. 7. Patient will receive supportive psych-education. 8. Discharge planning will commence immediately. 9. Outpatient follow-up treatment will be strongly recommended. 10. The initial treatment plan will focus initially on: * Depression. * Risk for suicide. ESTIMATED LENGTH OF STAY: 5-7 DAYS. TIME SPENT COUNSELING AND COORDINATING INITIAL CARE: 45 minutes. Tobacco Cessation Screen If Patient is a Smoker He is a smoker and getting nicotine patch Tobacco Cessation Tx Ordered?: Yes N/A-No Antipsychotics Vital Signs Vital Signs Date Time Temp Pulse Resp B/P (MAP) Pulse Ox O2 Delivery O2 Flow Rate FiO2 04/21/21 08:20 Room Air 04/21/21 06:00 98.9 92 22 158/97 (117) 97 Laboratory Data 24H Labs Laboratory Tests 2 04/20/21 18:14: Nucleated Red Blood Cells % (auto) 0.0, Anion Gap 6L, Glomerular Filtration Rate > 60.0, Calcium Level 8.7, Total Bilirubin 0.7, Direct Bilirubin 0.1, Aspartate Amino Transf (AST/SGOT) 33, Alanine Aminotransferase (ALT/SGPT) 69, Alkaline Phosphatase 64, Total Protein 8.3H, Albumin 4.4, Albumin/Globulin Ratio 1.1L, Thyroid Stimulating Hormone (TSH) 25.000H, Human Chorionic Gonadotropin, Qual NEGATIVE, Salicylates Level 2.2L, Acetaminophen Level < 2.0L, Ethyl Alcohol Level < 0.003 04/20/21 19:37: Urine Opiates Screen NEGATIVE, Urine Methadone Screen NEGATIVE, Urine Barbiturates Screen NEGATIVE, Urine Phencyclidine Screen NEGATIVE, Urine Amphetamines Screen NEGATIVE, Urine Benzodiazepines Screen NEGATIVE, Urine Cocaine Metabolite Screen NEGATIVE, Urine Cannabinoids Screen NEGATIVE 04/20/21 20:33: Coronavirus (COVID-19)(PCR) NEGATIVE, Influenza Type A (RT-PCR) NEGATIVE, Influenza Type B (RT-PCR) NEGATIVE, Respiratory Syncytial Virus (PCR) NEGATIVE CBC/BMP Laboratory Tests 04/20/21 18:14 Medications No Active Prescriptions or Reported Meds Allergies Coded Allergies: No Known Allergies (Unverified , 03/20/15) BENSON SINGER M.D. Apr 21, 2021 09:21
[2021-04-21] MEDS: NICOTINE 21MG/24HR 1 EA TRANSDERMAL TD SCH (09:31)
[2021-04-21] MEDS: clonazePAM 0.5 MG TAB PO SCH ×2 (09:32→20:51)
[2021-04-21 16:27] VITALS: BP 156/89
--- NOTE | 2021-04-21 16:56 | HPEPDOC ---
General Date of Admission Apr 20, 2021 at 17:43 Date of Service: Apr 21, 2021 Chief Complaint The patient is a 25-year-old female admitted with a reason for visit of Unspecified Depressive D/O. Source: Patient History of Present Illness 25 year old female admitted to [facility] for unspecified depression. She is being examined here for medical history and physical. Did not offer any complaints this morning. Home Medications No Active Prescriptions or Reported Meds Allergies Coded Allergies: No Known Allergies (Unverified , 03/20/15) Past Medical History Medical History HYPOTHYROIDISM ASTHMA as a child DEPRESSION OBESITY Surgical History GANGLION CYST Family History DM, HTN, BREAST CANCER. Social History * Smoker: current smoker Alcohol: rarely Drugs: denies A-FIB/CHADSVASC A-FIB History Current/History of A-Fib/PAF?: No Review of Systems Constitutional: Denies: Chills, Fever, Night Sweats Eyes: Denies: Pain, Vision change ENT: Denies: Head Aches, Ear Pain, Dysphagia Skin: Denies: Rash, Lesions, Breakdown Pulmonary: Denies: Dyspnea, Cough Cardiovascular: Denies: Chest Pain, Palpitations, Orthopnea, Paroxysmal Noc. Dyspnea, Lt Headedness Gastrointestinal: Denies: Nausea, Vomiting, Abdominal Pain, Diarrhea Genitourinary: Denies: Dysuria, Frequency, Incontinence, Retention Musculoskeletal: Denies: Neck Pain, Back Pain, Joint Pain, Muscle Pain, Spasms Physical Examination General Exam: Positive: Alert, Cooperative, No Acute Distress Eye Exam: Positive: PERRLA, Conjunctiva & lids normal, EOMI; Negative: Sclera icteric Neck Exam: Positive: Supple; Negative: JVD, thyromegaly Chest Exam: Positive: Clear to auscultation, Normal air movement Heart Exam: Positive: Rate Normal, Regular Rhythm, Normal S1, Normal S2; Negative: Murmurs, Rubs Abdomen Exam: Positive: Normal bowel sounds, Soft; Negative: Tenderness Extremity Exam: Negative: Clubbing, Cyanosis, Edema Psych Exam: Positive: Memory Intact, Oriented x 3 Vital Signs Vital Signs Date Time Temp Pulse Resp B/P (MAP) Pulse Ox O2 Delivery O2 Flow Rate FiO2 04/21/21 06:00 98.9 92 22 158/97 (117) 97 Room Air Laboratory Data Labs 24H Laboratory Tests 2 04/20/21 18:14: Nucleated Red Blood Cells % (auto) 0.0, Anion Gap 6L, Glomerular Filtration Rate > 60.0, Calcium Level 8.7, Total Bilirubin 0.7, Direct Bilirubin 0.1, Aspartate Amino Transf (AST/SGOT) 33, Alanine Aminotransferase (ALT/SGPT) 69, Alkaline Phosphatase 64, Total Protein 8.3H, Albumin 4.4, Albumin/Globulin Ratio 1.1L, Thyroid Stimulating Hormone (TSH) 25.000H, Human Chorionic Gonadotropin, Qual NEGATIVE, Salicylates Level 2.2L, Acetaminophen Level < 2.0L, Ethyl Alcohol Level < 0.003 04/20/21 19:37: Urine Opiates Screen NEGATIVE, Urine Methadone Screen NEGATIVE, Urine Barbiturates Screen NEGATIVE, Urine Phencyclidine Screen NEGATIVE, Urine Amphetamines Screen NEGATIVE, Urine Benzodiazepines Screen NEGATIVE, Urine Cocaine Metabolite Screen NEGATIVE, Urine Cannabinoids Screen NEGATIVE 04/20/21 20:33: Coronavirus (COVID-19)(PCR) NEGATIVE, Influenza Type A (RT-PCR) NEGATIVE, Influenza Type B (RT-PCR) NEGATIVE, Respiratory Syncytial Virus (PCR) NEGATIVE CBC/BMP Laboratory Tests 04/20/21 18:14 Assessment/Plan 25 year old female admitted to [facility] for unspecified depression. She is being examined here for medical history and physical. Did not offer any complaints this morning. Depression as per psychiatry Hypothyroid TSH elevated has not take her medication for solorzano than a month will resume medication used to take Euthyrox 150 mcg daily Plan / VTE VTE Prophylaxis Ordered?: No (freely ambulatory) HUSAM NGUYEN MD Apr 21, 2021 07:55
[2021-04-21] MEDS: MIRTAZAPINE 15 MG TAB PO SCH (20:51)
[2021-04-22] MEDS: LEVOTHYROXINE 150MCG TABLET (0.15MG) PO SCH (05:37)
[2021-04-22 06:15] VITALS: BP 128/88
--- NOTE | 2021-04-22 08:19 | MHIPNPDOC ---
[facility] Progress Note Progress Note DATE OF SERVICE: 04/22/21 The patient reports that she slept better with Remeron and trazodone but was feeling somewhat tired. She took Klonopin with good relief in her anxiety but in the afternoon. The morning dose was wearing off and she was feeling more anxious and is asking if she can have Klonopin 3 times a day. She appears slightly more animated, not as blunted, but remained markedly depressed. She spoke with her children but didn't talk to her boyfriend and believes her relationship is over and feeling quite hopeless and helpless. She is denying any active suicidal thoughts and is unwilling to accept help. HISTORY: . VITAL SIGNS: See below. NEW TEST RESULTS: . CURRENT MEDICATIONS: See below. MENTAL STATUS EXAMINATION: Patient is a 25-year old female, who is , cooperative and pleasant. Speech: Is rational coherent, but not very productive. Language skills are good. Thought processes including: Relevant. Thought content: No active suicidal thoughts. Abstract reasoning, and computation: fair. Description of associations: , Organized Description of abnormal or psychotic thoughts: Denies any. Judgment: fair. Insight: fair. Orientation: Oriented]. Recent and remote memory: Good. Attention span and concentration: fair. Language: . Fund of knowledge: Average. Mood: , Depressed, feeling hopeless. Affect: Blunted but appropriate. DIAGNOSES: 1. . Major depression 2. . 3. . ASSESSMENT: Cooperating and tolerating her medicine, but remained depressed MANAGEMENT PLAN: Continue the current treatment. TIME SPENT: 20 minutes. Vital Signs Vital Signs Date Time Temp Pulse Resp B/P (MAP) Pulse Ox O2 Delivery O2 Flow Rate FiO2 04/22/21 06:15 99.3 85 16 128/88 (101) 97 Room Air Current Medications Current Medications Medications (Trade) Dose Ordered Sig/Geraldine Route PRN Reason Start Time Stop Time Status Last Admin Dose Admin Acetaminophen (Tylenol Tab) 650 mg Q6HP PRN PO HEADACHE or MILD DISCOMFORT 04/20/21 21:40 Al Hydrox/Mg Hydrox/Simethicone (Mylanta) 30 ml Q4HP PRN PO HEARTBURN/INDIGESTION 04/20/21 21:40 Clonazepam (KlonoPIN) 0.5 mg BID PO 04/21/21 09:00 04/21/21 20:51 Home Med (Med Rec Complete!) ASDIRECTED XX 6/18/21 20:50 04/20/21 20:48 DC Levothyroxine Sodium (Synthroid) 150 mcg DAILY@06 PO 04/22/21 06:00 04/22/21 05:37 Magnesium Hydroxide (Milk Of Magnesia) 30 ml DAILYPRN PRN PO CONSTIPATION 04/20/21 21:40 Mirtazapine (Remeron) 15 mg QHS PO 04/21/21 21:00 04/21/21 20:51 Nicotine (Nicoderm Cq 21mg) 1 patch DAILY TD 04/20/21 22:25 04/21/21 09:31 Trazodone HCl (Desyrel) 50 mg QHSP PRN PO INSOMNIA 04/20/21 21:40 04/21/21 21:32 Allergies Coded Allergies: No Known Allergies (Unverified , 03/20/15) BENSON SINGER M.D. Apr 22, 2021 08:19
[2021-04-22] MEDS: NICOTINE 21MG/24HR 1 EA TRANSDERMAL TD SCH (09:02)
[2021-04-22] MEDS: clonazePAM 0.5 MG TAB PO SCH ×3 (09:02→20:58)
[2021-04-22 17:26] VITALS: BP 144/88
[2021-04-22] MEDS: MIRTAZAPINE 15 MG TAB PO SCH (20:57)
[2021-04-22] MEDS: traZODone 50 MG TAB PO PRN (21:26)
[2021-04-23] MEDS: LEVOTHYROXINE 150MCG TABLET (0.15MG) PO SCH (05:36)
[2021-04-23 06:31] VITALS: BP 149/83
[2021-04-23] MEDS: clonazePAM 0.5 MG TAB PO SCH (08:30)
[2021-04-23] MEDS: NICOTINE 21MG/24HR 1 EA TRANSDERMAL TD SCH (08:31)
--- NOTE | 2021-04-23 09:17 | MHIPNPDOC ---
[facility] Progress Note Progress Note DATE OF SERVICE: 04/23/21 The patient reported that the increase the Klonopin and Remeron is making her very sleepy, tired and unable to stay awake. She is much less anxious but the side effect is quite severe and is worried that she might not be able to function with this medication. We will discontinue both of this and start Prozac 20 mg, along with trazodone as needed. She remained depressed and wants to feel better, but denies any active suicidal ideas and is agreeing with the treatment program. HISTORY: . VITAL SIGNS: See below. NEW TEST RESULTS: . CURRENT MEDICATIONS: See below. MENTAL STATUS EXAMINATION: Patient is a 25-year old female, who is , cooperative. Speech: Is rational, coherent. Language skills are good. Thought processes including: Relevant and coherent. Thought content: . No psychotic symptoms and denies any active suicidal thoughts. Abstract reasoning, and computation: fair. Description of associations : Well-organized. Description of abnormal or psychotic thoughts: Denies any. Judgment: fair. Insight: fair. . Orientation: , Oriented. Recent and remote memory: Good. Attention span and concentration: , But. Language: . Fund of knowledge: . Mood: Remains depressed but not as anxious. Affect: Depressed with appropriate . DIAGNOSES: 1. Major depression . 2. . 3. . ASSESSMENT:Experiencing sedation from the medication but fully cooperative MANAGEMENT PLAN: Continued change of medications and supportive therapy. TIME SPENT: 20 minutes. Vital Signs Vital Signs Date Time Temp Pulse Resp B/P (MAP) Pulse Ox O2 Delivery O2 Flow Rate FiO2 04/23/21 06:31 98.9 91 18 149/83 (105) Room Air 04/22/21 06:15 97 Current Medications Current Medications Medications (Trade) Dose Ordered Sig/Geraldine Route PRN Reason Start Time Stop Time Status Last Admin Dose Admin Acetaminophen (Tylenol Tab) 650 mg Q6HP PRN PO HEADACHE or MILD DISCOMFORT 04/20/21 21:40 Al Hydrox/Mg Hydrox/Simethicone (Mylanta) 30 ml Q4HP PRN PO HEARTBURN/INDIGESTION 04/20/21 21:40 Clonazepam (KlonoPIN) 0.5 mg BID PO 04/21/21 09:00 04/22/21 08:12 DC 04/21/21 20:51 Clonazepam (KlonoPIN) 0.5 mg TID PO 04/22/21 09:00 04/23/21 08:55 DC 04/22/21 16:16 Fluoxetine HCl (PROzac) 20 mg DAILY PO 04/23/21 09:00 Home Med (Med Rec Complete!) ASDIRECTED XX 04/20/21 20:50 04/20/21 20:48 DC Levothyroxine Sodium (Synthroid) 150 mcg DAILY@06 PO 04/22/21 06:00 04/23/21 05:36 Magnesium Hydroxide (Milk Of Magnesia) 30 ml DAILYPRN PRN PO CONSTIPATION 04/20/21 21:40 Mirtazapine (Remeron) 15 mg QHS PO 04/21/21 21:00 04/23/21 08:55 DC 04/22/21 20:57 Nicotine (Nicoderm Cq 21mg) 1 patch DAILY TD 04/20/21 22:25 04/23/21 08:31 Trazodone HCl (Desyrel) 50 mg QHSP PRN PO INSOMNIA 04/20/21 21:40 04/22/21 21:26 Allergies Coded Allergies: No Known Allergies (Unverified , 03/20/15) BENSON SINGER M.D. Apr 23, 2021 09:17
[2021-04-23] MEDS: FLUoxetine 20 MG CAP PO SCH (09:45)
[2021-04-23 16:06] VITALS: BP 137/94
[2021-04-23] MEDS: traZODone 50 MG TAB PO PRN (20:50)
[2021-04-24] MEDS: LEVOTHYROXINE 150MCG TABLET (0.15MG) PO SCH (05:19)
[2021-04-24 06:04] VITALS: BP 143/81
[2021-04-24] MEDS: NICOTINE 21MG/24HR 1 EA TRANSDERMAL TD SCH (08:28)
[2021-04-24] MEDS: FLUoxetine 20 MG CAP PO SCH (08:28)
--- NOTE | 2021-04-24 10:13 | MHIPNPDOC ---
[facility] Progress Note Progress Note DATE OF SERVICE: 04/24/21 Patient fully cooperated with the change of medications and reported that she is not feeling as sleepy, tired and feeling a little bit better. He appears less blunted and more animated and feeling more hopeful. She stated that her parents who is living in [place] is asking her to move down to [place] to stay with them, and patient feels much more hopeful. She slept with the trazodone and tolerating Prozac without any side effect. I reports no suicidal thoughts. HISTORY: . VITAL SIGNS: See below. NEW TEST RESULTS: . CURRENT MEDICATIONS: See below. MENTAL STATUS EXAMINATION: Patient is a 25-year old female, who is , cooperative. Speech: Is rational, coherent. Language skills are good. Thought processes including: Organized and more productive . Thought content: Denies any active suicidal thoughts. Abstract reasoning, and computation: fair. Description of associations: Rational, coherent. Description of abnormal or psychotic thoughts: Denies any. Judgment: fair. Insight: fair. Orientation: , Well oriented. Recent and remote memory: [Fair. Attention span and concentration: Fair. Language: . Fund of knowledge: . Mood: Moderately depressed . Affect: , Not as blunted and more animated. DIAGNOSES: 1. . Major depression 2. . 3. . ASSESSMENT:Fully cooperating, and showing some improvement MANAGEMENT PLAN: . Increase Prozac to 30 mg. TIME SPENT: 20 minutes. Vital Signs Vital Signs Date Time Temp Pulse Resp B/P (MAP) Pulse Ox O2 Delivery O2 Flow Rate FiO2 04/24/21 06:04 98.8 74 12 143/81 (101) 99 Room Air Current Medications Current Medications Medications (Trade) Dose Ordered Sig/Geraldine Route PRN Reason Start Time Stop Time Status Last Admin Dose Admin Acetaminophen (Tylenol Tab) 650 mg Q6HP PRN PO HEADACHE or MILD DISCOMFORT 04/20/21 21:40 Al Hydrox/Mg Hydrox/Simethicone (Mylanta) 30 ml Q4HP PRN PO HEARTBURN/INDIGESTION 04/20/21 21:40 Clonazepam (KlonoPIN) 0.5 mg BID PO 04/21/21 09:00 04/22/21 08:12 DC 04/21/21 20:51 Clonazepam (KlonoPIN) 0.5 mg TID PO 04/22/21 09:00 04/23/21 08:55 DC 04/22/21 16:16 Fluoxetine HCl (PROzac) 20 mg DAILY PO 04/23/21 09:00 04/24/21 08:28 Home Med (Med Rec Complete!) ASDIRECTED XX 04/20/21 20:50 04/20/21 20:48 DC Levothyroxine Sodium (Synthroid) 150 mcg DAILY@06 PO 04/22/21 06:00 04/24/21 05:19 Magnesium Hydroxide (Milk Of Magnesia) 30 ml DAILYPRN PRN PO CONSTIPATION 04/20/21 21:40 Mirtazapine (Remeron) 15 mg QHS PO 04/21/21 21:00 04/23/21 08:55 DC 04/22/21 20:57 Nicotine (Nicoderm Cq 21mg) 1 patch DAILY TD 04/20/21 22:25 04/24/21 08:28 Trazodone HCl (Desyrel) 50 mg QHSP PRN PO INSOMNIA 04/20/21 21:40 04/23/21 20:50 Allergies Coded Allergies: No Known Allergies (Unverified , 03/20/15) BENSON SINGER M.D. Apr 24, 2021 10:13
[2021-04-24 16:11] VITALS: BP 135/94
[2021-04-24] MEDS: traZODone 50 MG TAB PO PRN (20:25)
[2021-04-25] MEDS: LEVOTHYROXINE 150MCG TABLET (0.15MG) PO SCH (05:19)
[2021-04-25 05:57] VITALS: BP 144/94
[2021-04-25] MEDS: FLUoxetine 10 MG CAP PO SCH (08:24)
[2021-04-25] MEDS: NICOTINE 21MG/24HR 1 EA TRANSDERMAL TD SCH (08:25)
--- NOTE | 2021-04-25 09:21 | MHIPNPDOC ---
[facility] Progress Note Progress Note DATE OF SERVICE: 04/25/21 The patient is tolerating Prozac without any complaint not feeling as sleepy or sedated. She is reporting significant improvement in her depression. She does n ot feel so hopeless, helpless, and is feeling more positive and is making plans to move to [place] to be with her parents. Her only concern is possible conflict with her ex-boyfriend who may want to keep the children with him, but not her likely possibility and patient was reassured and advised to seek legal transcriber. If the conflict arises. HISTORY: . VITAL SIGNS: See below. NEW TEST RESULTS: . CURRENT MEDICATIONS: See below. MENTAL STATUS EXAMINATION: Patient is a 25-year old female, who is , cooperative and pleasant. Speech: Is more productive and spontaneous. Language skills are good. Thought processes including: Rational, coherent. Thought content: No suicidal thoughts . Abstract reasoning, and computation: Fair. Description of associations: Organized]. Description of abnormal or psychotic thoughts: Denies any hallucination. Judgment: Good. Insight: good,. Orientation: , Oriented. Recent and remote memory: Good. Attention span and concentration: Good. Language: . Fund of knowledge: . Mood: , Much less depressed. Affect: Much more animated than appropriate . DIAGNOSES: 1. . Major depression 2. . 3. . ASSESSMENT:[Showing improvement] MANAGEMENT PLAN: [. Continue with the medicine and supportive therapy. Possible discharge tomorrow]. TIME SPENT: [20] minutes. Vital Signs Vital Signs Date Time Temp Pulse Resp B/P (MAP) Pulse Ox O2 Delivery O2 Flow Rate FiO2 04/25/21 05:57 98.0 76 16 144/94 (111) 96 Room Air Current Medications Current Medications Medications (Trade) Dose Ordered Sig/Geraldine Route PRN Reason Start Time Stop Time Status Last Admin Dose Admin Acetaminophen (Tylenol Tab) 650 mg Q6HP PRN PO HEADACHE or MILD DISCOMFORT 04/20/21 21:40 Al Hydrox/Mg Hydrox/Simethicone (Mylanta) 30 ml Q4HP PRN PO HEARTBURN/INDIGESTION 04/20/21 21:40 Clonazepam (KlonoPIN) 0.5 mg BID PO 04/21/21 09:00 04/22/21 08:12 DC 04/21/21 20:51 Clonazepam (KlonoPIN) 0.5 mg TID PO 04/22/21 09:00 04/23/21 08:55 DC 04/22/21 16:16 Fluoxetine HCl (PROzac) 20 mg DAILY PO 04/23/21 09:00 04/24/21 10:15 DC 04/24/21 08:28 Fluoxetine HCl (PROzac) 30 mg DAILY PO 04/25/21 09:00 04/25/21 08:24 Home Med (Med Rec Complete!) ASDIRECTED XX 04/20/21 20:50 04/20/21 20:48 DC Levothyroxine Sodium (Synthroid) 150 mcg DAILY@06 PO 04/22/21 06:00 04/25/21 05:19 Magnesium Hydroxide (Milk Of Magnesia) 30 ml DAILYPRN PRN PO CONSTIPATION 04/20/21 21:40 Mirtazapine (Remeron) 15 mg QHS PO 04/21/21 21:00 04/23/21 08:55 DC 04/22/21 20:57 Nicotine (Nicoderm Cq 21mg) 1 patch DAILY TD 04/20/21 22:25 04/24/21 08:28 Trazodone HCl (Desyrel) 50 mg QHSP PRN PO INSOMNIA 04/20/21 21:40 04/24/21 20:25 Allergies Coded Allergies: No Known Allergies (Unverified , 03/20/15) BENSON SINGER M.D. Apr 25, 2021 09:21
[2021-04-25 16:00] VITALS: BP 132/88
[2021-04-25] MEDS: traZODone 50 MG TAB PO PRN (21:09)
[2021-04-26] MEDS: LEVOTHYROXINE 150MCG TABLET (0.15MG) PO SCH (06:10)
[2021-04-26 06:29] VITALS: BP 148/92
[2021-04-26] MEDS: FLUoxetine 10 MG CAP PO SCH (08:33)
[2021-04-26] MEDS: NICOTINE 21MG/24HR 1 EA TRANSDERMAL TD SCH (08:33)
[2021-04-26] MEDS ORDERED: FLUO10CA16 PO (08:45)
[2021-04-26] MEDS ORDERED: LEVO150T7 PO (08:45)
[2021-04-26] MEDS ORDERED: NICO21PAT TD (08:45)
--- NOTE | 2021-04-26 08:54 | MHDSPDOC ---
[facility] Discharge Summary Discharge Summary DATE OF ADMISSION: Apr 20, 2021 at 17:43 DATE OF DISCHARGE: 04/26/2021 DISCHARGE DIAGNOSES: 1. . Major depression, single episode without psychosis 2. ., Rule out depression REASON FOR ADMISSION: 30-year-old female with no previous psychiatric history admitted due to increasing depression and vague suicidal thoughts. Patient reports increasing depression since the childbirth in September 2020, which is getting worse since her boyfriend decided to leave her 2 weeks ago. Is a reported increasing anxiety, crying spells, not sleeping and having vague suicidal thoughts. No substance abuse issues and no psychotic symptoms. CONSULTANTS INVOLVED: TREATMENT AND PROGRESS ON THE UNIT : Patient was seen for supportive therapy and started on Remeron 15 mg at bedtime and Klonopin 0.5 mg twice a day. Patient reported feeling overly sedated, sleeping too much and concerned about her ability to take care of her. Children. Remeron and Klonopin was discontinued. She was started on Prozac 20 mg daily, increase to 30 mg daily with a significant improvement. She is reporting marked reduction in her anxiety level and is sleeping better. She is also getting support from her parents who lives in [place] and was offered to move to stay with her parents with her 3 children. Patient reports feeling much more hopeful, not as helpless or depressed and strongly denies any suicidal thoughts.. HOSPITAL COURSE: With the supportive therapy and medication. She is showing marked improvement. She is animated, sleeping well and no more crying spells and feeling positive and is planning to move to [place] to be with her parents. She is maintaining good control and denies any suicidal thoughts and appeared stable at her baseline. DISCHARGE ASSESSMENT: Much improved, stable and not suicidal MENTAL STATUS EXAMINATION ON DISCHARGE: Patient is a 30-year old female, who is in no acute distress. Speech is productive, coherent. Language skills are good. Thought processes including: Relevant and organized. Thought content: . No suicidal thoughts. Abstract reasoning, and computation: Good. Description of associations: Were organized . Description of abnormal or psychotic thoughts: . No psychotic symptoms. Judgment: Good. Insight: Good. Orientation to , well oriented. Recent and remote memory: ,good. Attention span and concentration: fair. Language: . Fund of knowledge: . Mood: Euthymic, much less depressed . Affect: More animated and appropriate. MEDICATIONS ON DISCHARGE: - for ., Prozac 30 mg daily for 7 days with 3 refills - for ., Synthroid and 150 g daily for 30 days - for . Nicotine patch 21 mg for 7 days PLAN/FOLLOWUP ARRANGEMENTS: Arranged by the environmental emergencies planner. The amount of time spent in the coordination of care for this patient was approximately 35 minutes. ETOH/Disorder Med Rx ETOH/DRUG DISORDER RX: N/A Vital Signs/I&Os Vital Signs Date Time Temp Pulse Resp B/P (MAP) Pulse Ox O2 Delivery O2 Flow Rate FiO2 04/26/21 06:29 98.9 70 16 148/92 (110) 96 Room Air Medications Scheduled Fluoxetine Hcl (Fluoxetine HCl) 10 Mg Capsule, 30 MG PO DAILY for depression for 7 Days, #21 Levothyroxine Sodium (Levothyroxine Sodium) 150 Mcg Tablet, 150 MCG PO DAILY@06 for hypothyroidism for 30 Days, #30 Nicotine (Nicotine Patch) 21 Mg Patch.td24, 1 PATCH TD DAILY for smoke cessation for 7 Days, #7 Allergies Coded Allergies: No Known Allergies (Unverified , 03/20/15) BENSON SINGER M.D. Apr 26, 2021 08:54
== END 2021-04-26 12:40 | disposition home or self-care (01) | DRG 751 ==
LOC: M ED 17:42 → M ED INP 17:43 → M PSY 23:23
PROVIDERS: ADMIT Psychiatry & Neurology Psychiatry; ATTEND Psychiatry & Neurology Psychiatry
DX: F32.2 Major depressive disorder, single episode, severe without psychotic features (principal); Z91.14 Patient's other noncompliance with medication regimen; E03.9 Hypothyroidism, unspecified; Z81.8 Family history of other mental and behavioral disorders; F17.200 Nicotine dependence, unspecified, uncomplicated; Z20.822 Contact with and (suspected) exposure to COVID-19; Z63.5 Disruption of family by separation and divorce; F53.0 Postpartum depression

== ENCOUNTER → 2021-06-13 | Outpatient (CLI) | payer OTHER ==
[~2021-06-13] MED LIST changes: +FLUO10CA16 PO; +LEVO150T7 PO; +NICO21PAT TD
--- NOTE | 2021-06-13 12:55 | REP ---
INDICATION: PELVIC PAIN/ US 1ST, LABS 2ND. COMPARISON: None. TECHNIQUE: Routine ultrasound FINDINGS: The uterus measures 8.4 x 4.1 x 5 2 cm. Echo pattern is normal. Endometrium 7 mm.. No evidence of mass or fibroid Right ovary 3.4 x 2.8 x 2.3 cm. Normal blood flow. 6 x 4 x 5 mm hyperechoic nodule. Left ovary: 3.4 x 2.4 x 2.2 cm. Normal blood flow. Echo pattern normal paired IMPRESSION: 6 x 4 x 5 mm hyperechoic area on the right ovary having an echogenic appearance consistent with fat. Normal uterus and left ovary. No fluid in the cul-de-sac. Follow-up exam in 1 year would be helpful <Electronically signed by Maciej Solares > 06/13/21 5320
[2021-06-13 15:10] LABS: FREE T4 0.9 NG/DL (0.76-1.46); THYROID STIMULATING HORMONE 9.71 uIU/ML (0.358-3.740)
== END ==
LOC: M RAD 11:57
PROVIDERS: ATTEND Student in an Organized Health Care Education/Training Program
DX: R10.2 Pelvic and perineal pain (principal); E03.9 Hypothyroidism, unspecified

== ENCOUNTER → 2022-05-14 | Outpatient (CLI) | payer OTHER ==
[~2022-05-14] MED LIST changes: -FLUO10CA16 PO; +FLUO10CA18 PO
[2022-05-14 14:13] LABS: CHOLESTEROL RISK RATIO 4.473 (<5); FREE T4 0.69 NG/DL (0.76-1.46); THYROID STIMULATING HORMONE 47.7 uIU/ML (0.358-3.740)
== END ==
LOC: M LAB 11:47
PROVIDERS: ATTEND Student in an Organized Health Care Education/Training Program
DX: E03.9 Hypothyroidism, unspecified (principal); E78.5 Hyperlipidemia, unspecified

== ENCOUNTER → 2023-10-15 | Outpatient (REF) | payer OTHER | LOC: M SFHCWAGY 10:13 | PROVIDERS: ATTEND Nurse Practitioner Family | DX: Z12.4 Encounter for screening for malignant neoplasm of cervix (principal); R85.610 Atypical squamous cells of undetermined significance on cytologic smear of anus (ASC-US) | CPT/HCPCS: 87624; G0123 ==

== ENCOUNTER → 2023-10-16 | Outpatient (CLI) | payer OTHER ==
[2023-10-16 17:40] LABS: BASO # 0.1 10^3/uL (0.0-0.2); BASO % 0.6 % (0.0-1.0); EOS # 0.6 10^3/uL (0.0-0.5); EOS % 4.4 % (0.0-3.0); HEMOGLOBIN 13.6 g/dl (12.0-15.5); LYMPH # 3.9 10^3/uL (1.5-5.0); LYMPH % 27.9 % (24.0-44.0); MEAN CORPUSCULAR HEMOGLOBIN 28.2 pg (27.0-33.0); MEAN CORPUSCULAR HGB CONC 33.2 g/dl (32.0-36.5); MEAN CORPUSCULAR VOLUME 84.9 fl (80.0-96.0); MONO # 0.7 10^3/uL (0.0-0.8); MONO % 5.3 % (2.0-8.0); NEUTROPHILS # 8.4 10^3/uL (1.5-8.5); NEUTROPHILS % 60.4 % (36.0-66.0); PLATELET COUNT, AUTOMATED 288 10^3/uL (150-450); RED BLOOD COUNT 4.83 10^6/uL (4.00-5.40)
[2023-10-16 17:47] LABS: HEMOGLOBIN A1c 5.7 % (4.0-6.0)
[2023-10-16 18:03] LABS: ALKALINE PHOSPHATASE 82 U/L (46-116); ALT/SGPT 96 U/L (7.0-40); AST/SGOT 65 U/L (<34); BILIRUBIN,TOTAL 0.6 MG/DL (0.3-1.2); BLOOD UREA NITROGEN 11 MG/DL (9-23); CALCIUM LEVEL 9.9 MG/DL (8.5-10.1); CARBON DIOXIDE LEVEL 28 MMOL/L (20-31); CHLORIDE LEVEL 105 MMOL/L (98-107); GLOMERULAR FILTRATION RATE > 60.0 (>60); GLUCOSE, FASTING 118 MG/DL (60-100); POTASSIUM SERUM 3.8 MMOL/L (3.5-5.1); SODIUM LEVEL 140 MMOL/L (136-145); TOTAL PROTEIN 7.7 G/DL (5.7-8.2)
[2023-10-16 18:04] LABS: FREE T4 1.18 NG/DL (0.89-1.76)
[2023-10-16 18:05] LABS: PROLACTIN 10.13 NG/ML; THYROID STIMULATING HORMONE 3.436 uIU/ML (0.55-4.78)
== END ==
LOC: M PLALAB 15:14
PROVIDERS: ATTEND Nurse Practitioner Family
DX: N92.6 Irregular menstruation, unspecified (principal); Z12.4 Encounter for screening for malignant neoplasm of cervix

== ENCOUNTER → 2023-10-23 | Outpatient (CLI) | payer OTHER | LOC: M WHC 08:04 | PROVIDERS: ATTEND Nurse Practitioner Family | DX: R10.2 Pelvic and perineal pain (principal); N85.8 Other specified noninflammatory disorders of uterus ==

== ENCOUNTER → 2023-11-20 | Outpatient (CLI) | payer OTHER ==
[2023-11-20 17:49] LABS: BASO # 0.1 10^3/uL (0.0-0.2); BASO % 0.7 % (0.0-1.0); EOS # 0.6 10^3/uL (0.0-0.5); EOS % 4.8 % (0.0-3.0); HEMATOCRIT 43.2 % (36.0-47.0); HEMOGLOBIN 13.8 g/dl (12.0-15.5); LYMPH # 4.3 10^3/uL (1.5-5.0); LYMPH % 33.1 % (24.0-44.0); MEAN CORPUSCULAR HEMOGLOBIN 27.8 pg (27.0-33.0); MEAN CORPUSCULAR HGB CONC 31.9 g/dl (32.0-36.5); MEAN CORPUSCULAR VOLUME 86.9 fl (80.0-96.0); MONO # 0.9 10^3/uL (0.0-0.8); MONO % 6.7 % (2.0-8.0); NEUTROPHILS # 6.9 10^3/uL (1.5-8.5); NEUTROPHILS % 53.5 % (36.0-66.0); PLATELET COUNT, AUTOMATED 271 10^3/uL (150-450); RED BLOOD COUNT 4.97 10^6/uL (4.00-5.40); WHITE BLOOD COUNT 12.9 10^3/uL (4.0-10.0)
[2023-11-20 18:18] LABS: HEMOGLOBIN A1c 5.8 % (4.0-6.0)
[2023-11-20 18:24] LABS: ALBUMIN 3.9 G/DL (3.2-5.2); ALKALINE PHOSPHATASE 80 U/L (46-116); ALT/SGPT 84 U/L (7.0-40); AST/SGOT 46 U/L (<34); BILIRUBIN,TOTAL 0.7 MG/DL (0.3-1.2); BLOOD UREA NITROGEN 12 MG/DL (9-23); CARBON DIOXIDE LEVEL 29 MMOL/L (20-31); CHLORIDE LEVEL 107 MMOL/L (98-107); CHOLESTEROL LEVEL 197 MG/DL (<200); CHOLESTEROL RISK RATIO 5.42 (<5); CREATININE FOR GFR 0.66 MG/DL (0.55-1.30); GLOMERULAR FILTRATION RATE > 60.0 (>60); GLUCOSE, FASTING 92 MG/DL (60-100); HDL CHOLESTEROL 36.3 MG/DL (>40); LDL CHOLESTEROL 123.5 MG/DL (<100); NON-HDL-C 160.7 MG/DL; POTASSIUM SERUM 4.1 MMOL/L (3.5-5.1); SODIUM LEVEL 140 MMOL/L (136-145); TOTAL 25(OH) VITAMIN D 23.2 NG/ML (20.0-100.0); TOTAL PROTEIN 7.6 G/DL (5.7-8.2); TRIGLYCERIDES LEVEL 186 MG/DL (<150)
[2023-11-20 18:25] LABS: THYROID STIMULATING HORMONE 4.013 uIU/ML (0.55-4.78)
[2023-11-20 18:26] LABS: FREE T4 1.06 NG/DL (0.89-1.76)
== END ==
LOC: M WUC 12:41
PROVIDERS: ATTEND Physician Assistant
DX: E28.2 Polycystic ovarian syndrome (principal); E03.9 Hypothyroidism, unspecified; E66.01 Morbid (severe) obesity due to excess calories

== ENCOUNTER → 2023-11-27 | Outpatient (CLI) | payer OTHER | LOC: M RAD 06:57 | PROVIDERS: ATTEND Physician Assistant | DX: R22.1 Localized swelling, mass and lump, neck (principal) ==

== ENCOUNTER → 2024-01-20 | Outpatient (CLI) | payer OTHER ==
[~2024-01-20] MED LIST changes: +BUSP1TAB PO; +CHOL1CAP10 PO; +FLUO1TAB; +LEVO125T4; +LIDOCAINE 1% MDV 20ML VIAL As Ordered ONE; +MAGN400C PO; +METF500T13 PO
[2024-01-20 09:42] VITALS: TEMP 97.6
[2024-01-20 10:35] VITALS: BP 152/97; O2SAT 97
== END ==
LOC: M IRPRO 09:33
PROVIDERS: ATTEND Surgery
DX: R22.1 Localized swelling, mass and lump, neck (principal)

== ENCOUNTER → 2024-02-06 | Outpatient (CLI) | payer OTHER ==
[~2024-02-06] MED LIST changes: -LIDOCAINE 1% MDV 20ML VIAL As Ordered ONE
== END ==
LOC: M RAD 10:05
PROVIDERS: ATTEND Internal Medicine Medical Oncology
DX: R16.0 Hepatomegaly, not elsewhere classified (principal); K76.0 Fatty (change of) liver, not elsewhere classified

== ENCOUNTER → 2024-02-11 | Outpatient (CLI) | payer OTHER ==
[~2024-02-11] MED LIST changes: +ISOVUE-370 76% 100ML VIAL ONE
== END ==
LOC: M PLAIMG 09:52
PROVIDERS: ATTEND Physician Assistant
DX: R93.89 Abnormal findings on diagnostic imaging of other specified body structures (principal); E32.8 Other diseases of thymus; K76.0 Fatty (change of) liver, not elsewhere classified
CPT/HCPCS: 71260; Q9967

== ENCOUNTER → 2024-03-02 | Outpatient (CLI) | payer OTHER ==
[~2024-03-02] MED LIST changes: +FLUO-290 PO; -FLUO10CA18 PO; -ISOVUE-370 76% 100ML VIAL ONE; +PROHANCE 279.3MG/ML 15ML VIAL ONE; +PROHANCE 279.3MG/ML 5ML VIAL ONE
== END ==
LOC: M PLAIMG 14:54
PROVIDERS: ATTEND Internal Medicine Medical Oncology
DX: R16.0 Hepatomegaly, not elsewhere classified (principal); K76.0 Fatty (change of) liver, not elsewhere classified
CPT/HCPCS: 74183; A9576

== ENCOUNTER → 2024-04-19 | Outpatient (CLI) | payer OTHER ==
[~2024-04-19] MED LIST changes: +FLUO1TAB3 PO; -LEVO125T4; +LEVO125T4 PO; -PROHANCE 279.3MG/ML 15ML VIAL ONE; -PROHANCE 279.3MG/ML 5ML VIAL ONE; +TIRZ5PEN3 SQ
[2024-04-19 19:50] LABS: BASO # 0.1 10^3/uL (0.0-0.2); BASO % 0.6 % (0.0-1.0); EOS # 0.7 10^3/uL (0.0-0.5); EOS % 5.3 % (0.0-3.0); HEMATOCRIT 40.1 % (36.0-47.0); HEMOGLOBIN 13.5 g/dl (12.0-15.5); LYMPH # 4.2 10^3/uL (1.5-5.0); MEAN CORPUSCULAR HEMOGLOBIN 28.3 pg (27.0-33.0); MEAN CORPUSCULAR HGB CONC 33.7 g/dl (32.0-36.5); MEAN CORPUSCULAR VOLUME 84.1 fl (80.0-96.0); MONO # 0.9 10^3/uL (0.0-0.8); NEUTROPHILS # 6.8 10^3/uL (1.5-8.5); NEUTROPHILS % 53.5 % (36.0-66.0); PLATELET COUNT, AUTOMATED 303 10^3/uL (150-450); RED BLOOD COUNT 4.77 10^6/uL (4.00-5.40); WHITE BLOOD COUNT 12.7 10^3/uL (4.0-10.0)
== END ==
LOC: M LAB 16:33
PROVIDERS: ATTEND Internal Medicine Medical Oncology
DX: D72.829 Elevated white blood cell count, unspecified (principal)

== ENCOUNTER → 2024-08-26 | Outpatient (CLI) | payer OTHER ==
[2024-08-26 18:28] LABS: FREE T4 1.46 NG/DL (0.89-1.76)
[2024-08-26 18:29] LABS: THYROID STIMULATING HORMONE 1.007 uIU/ML (0.55-4.78)
[2024-08-26 18:30] LABS: ALKALINE PHOSPHATASE 87 U/L (46-116); ALT/SGPT 27 U/L (7.0-40); AST/SGOT 14 U/L (<34); BILIRUBIN,TOTAL 0.6 MG/DL (0.3-1.2); BLOOD UREA NITROGEN 10 MG/DL (9-23); CALCIUM LEVEL 9.9 MG/DL (8.5-10.1); CARBON DIOXIDE LEVEL 28 MMOL/L (20-31); CHLORIDE LEVEL 108 MMOL/L (98-107); GLOMERULAR FILTRATION RATE > 60.0 (>60); GLUCOSE, FASTING 82 MG/DL (60-100); POTASSIUM SERUM 4.5 MMOL/L (3.5-5.1); SODIUM LEVEL 140 MMOL/L (136-145); TOTAL PROTEIN 7.7 G/DL (5.7-8.2)
== END ==
LOC: M WUC 12:54
PROVIDERS: ATTEND Family Medicine
DX: E03.9 Hypothyroidism, unspecified (principal); K76.0 Fatty (change of) liver, not elsewhere classified